=== PATIENT | female | born 1935 | race Caucasian/White ===

== ENCOUNTER 2021-02-09 11:16 | Inpatient (IN) | payer MEDICARE ==
[2021-02-09 11:40] LABS: Hemoglobin 12.9 g/dL (12.0-16.0); Mean Corpuscular HGB CONC 32.5 g/dL (32.0-36.0); Mean Corpuscular Hemoglobin 30.8 pg (27.0-31.0); Mean Corpuscular Volume 94.9 fL (78.0-98.0); Platelet Count 178 thou/uL (130-400); RBC Distribution Width 11.7 % (11.5-14.5); White Blood Cell (WBC) Count 19.7 thou/uL (4.8-10.8)
[2021-02-09 11:48] LABS: Actual Bicarbonate (HCO3a) 14.7 mEq/L (22-28); Analyzer IN Cardio ER; Base Excess (BEa) -9.8 mEq/L (-2.0 to +3.0); CO2 Tension 28.7 mmHg (35.0-45.0); Calcium, Ionized (arterial) 1.15 mmol/L (1.12-1.30); Carboxyhemoglobin (COHb) 0.5 gm% (0.0-3.0); Hemoglobin (Hb) 13.5 g/dL (12.0-16.0); O2 Tension (PaO2), arterial 132.8 mmHg (> 60.0); Potassium - ABG Lab 4.29 mmol/L (3.70-5.30); pH, Arterial 7.33 (7.35-7.45)
[2021-02-09 11:49] LABS: ALV-art Gradient 88.005 mmHg (0-20); Puncture Site RBA
[2021-02-09 12:00] LABS: Bilirubin Negative (Negative); Blood, Urine Moderate (Negative); Glucose, Urine (Dipstick) Negative (Negative); Ketone, Urine Negative (Negative); Leukocyte Large (Negative); Nitrite Negative (Negative); Protein, Urine (Dipstick) 100 mg/dL (Neg-Trace); Specific Gravity, Urine 1.025 (1.005-1.030); Urobilinogen 0.2 mg/dL (Less than 2)
[2021-02-09 12:05] LABS: Band 26 % (5-11); Eosinophils 3 % (0-10); Lymphocytes 15 % (21-51); MDiff Complete? YES; Metamyelocyte 1 % (0-0); Monocytes 6 % (0-10); Neutrophil 48 % (42-75); Platelet Morphology Comment Appears Adequate; Reactive Lymphocytes 1 % (0-10); Vacuoles SLIGHT
[2021-02-09 12:05] LABS: Clarity Cloudy (Clear)
[2021-02-09 12:06] LABS: Bacteria/HPF 4+ HPF (None Seen); Squamous Epithelial 0-3 HPF (0-3); WBC/HPF 21-50 HPF (0-3)
[2021-02-09 12:07] LABS: ALT (SGPT) 12 U/L (8-55); AST (SGOT) 18 U/L (5-34); Alkaline Phosphatase 61 U/L (40-110); Anion Gap 16 mmol/L (10-20); BUN (Urea Nitrogen) 30 mg/dL (9.8-20.1); Bilirubin, Total 0.4 mg/dL (0.2-1.2); Calc. Creatinine Clearance 0 mL/min (70-130); Calcium 8.1 mg/dL (7.8-10.44); Carbon Dioxide 16 mmol/L (23-31); Chloride 110 mmol/L (98-107); Globulin 2.4 g/dL (2.4-3.5); Potassium 4.6 mmol/L (3.5-5.1); Protein, Total 5.4 g/dL (5.8-8.1); Sodium 137 mmol/L (136-145)
[2021-02-09 12:39] LABS: Glucose 179 mg/dL (83-110)
[2021-02-09] MEDS ORDERED: Guaifenesin DM 100-10/5 ML UDCUP PO PRN (12:48)
[2021-02-09] MEDS ORDERED: Bisacodyl 5 MG TAB PO PRN (12:48)
[2021-02-09] MEDS ORDERED: HYDROcodone/Acetaminophen 5/325 mg Tablet PO PRN (12:48)
[2021-02-09 14:06] LABS: SARS-CoV-2 NAA Rapid Test Not Detected (NotDetected)
[2021-02-09 15:20] LABS: Lactic Acid 2.5 mmol/L (0.5-2.2)
[2021-02-09] MEDS: cefTRIAXone\\ROCEPHIN 2 GM in Sodium Chloride 0.9% 100 ML IVPB SCH (16:58)
[2021-02-09] MEDS ORDERED: Famotidine 20 MG TAB PO SCH (21:00)
[2021-02-09] MEDS: Ondansetron PF 4 MG/2 ML Vial IVP PRN (23:50)
[2021-02-10] MEDS ORDERED: Sodium Chloride 0.9% 1,000 ML IV SCH (01:30)
[2021-02-10 04:58] LABS: Anion Gap 16 mmol/L (10-20); BUN (Urea Nitrogen) 36 mg/dL (9.8-20.1); Calc. Creatinine Clearance 31 mL/min (70-130); Calcium 7.5 mg/dL (7.8-10.44); Carbon Dioxide 16 mmol/L (23-31); Chloride 111 mmol/L (98-107); Glucose 136 mg/dL (83-110); Potassium 4.6 mmol/L (3.5-5.1); Sodium 138 mmol/L (136-145)
[2021-02-10 05:05] LABS: Band 19 % (5-11); Hemoglobin 12.1 g/dL (12.0-16.0); Lymphocytes 5 % (21-51); MDiff Complete? YES; Mean Corpuscular HGB CONC 31.9 g/dL (32.0-36.0); Mean Corpuscular Hemoglobin 30.6 pg (27.0-31.0); Mean Corpuscular Volume 95.7 fL (78.0-98.0); Mean Platelet Volume 8.7 fL (7.4-10.4); Metamyelocyte 3 % (0-0); Monocytes 6 % (0-10); Neutrophil 67 % (42-75); Platelet Count 189 thou/uL (130-400); Platelet Morphology Comment Appears Adequate; RBC Morphology Normal; Red Blood Cell (RBC) Count 3.95 mill/uL (4.20-5.40); White Blood Cell (WBC) Count 24.2 thou/uL (4.8-10.8)
[2021-02-10] MEDS ORDERED: FLU VACC QS2021-22(65YR UP)/PF 240 MCG/0.7 ML SYRINGE IM ONE (09:00)
[2021-02-10] MEDS: Lactated Ringer's 1,000 ML IV SCH ×2 (09:19→16:49)
[2021-02-10] MEDS: Pantoprazole 40 MG VIAL IVP SCH (10:06)
[2021-02-10] MEDS: Ondansetron PF 4 MG/2 ML Vial IVP PRN (10:16)
[2021-02-10] MEDS: cefTRIAXone\\ROCEPHIN 2 GM in Sodium Chloride 0.9% 100 ML IVPB SCH (14:05)
[2021-02-10] MEDS ORDERED: Piperacillin/Tazobactam 3.375 GM in Sodium Chloride 0.9% 100 ML IVPB SCH (14:30)
[2021-02-10 19:10] LABS: Lactic Acid 1.5 mmol/L (0.5-2.2)
[2021-02-10] MEDS: Enoxaparin Sodium 30 MG/0.3 ML SYRINGE SC SCH (20:46)
[2021-02-10] MEDS ORDERED: Famotidine 20 MG TAB PO SCH (21:00)
[2021-02-10] MEDS ORDERED: Ziprasidone 20 MG VIAL IM PRN (21:22)
[2021-02-10] MEDS ORDERED: Sterile Water 10 ML ONE (21:30)
[2021-02-10] MEDS: Piperacillin/Tazobactam 3.375 GM in Sodium Chloride 0.9% 100 ML IVPB SCH (21:39)
[2021-02-11] MEDS: Lactated Ringer's 1,000 ML IV SCH ×2 (00:25→09:11)
[2021-02-11] MEDS: Piperacillin/Tazobactam 3.375 GM in Sodium Chloride 0.9% 100 ML IVPB SCH (04:14)
[2021-02-11 05:08] LABS: ALT (SGPT) 22 U/L (8-55); AST (SGOT) 42 U/L (5-34); Albumin 2.7 g/dL (3.4-4.8); Alkaline Phosphatase 55 U/L (40-110); Anion Gap 12 mmol/L (10-20); BUN (Urea Nitrogen) 38 mg/dL (9.8-20.1); Bilirubin, Total 0.3 mg/dL (0.2-1.2); Calc. Creatinine Clearance 33 mL/min (70-130); Carbon Dioxide 19 mmol/L (23-31); Chloride 113 mmol/L (98-107); Globulin 2.4 g/dL (2.4-3.5); Glucose 67 mg/dL (83-110); Hemoglobin 10.7 g/dL (12.0-16.0); Mean Corpuscular HGB CONC 32.9 g/dL (32.0-36.0); Mean Corpuscular Hemoglobin 31.1 pg (27.0-31.0); Mean Corpuscular Volume 94.4 fL (78.0-98.0); Mean Platelet Volume 8.8 fL (7.4-10.4); Platelet Count 142 thou/uL (130-400); Potassium 4.1 mmol/L (3.5-5.1); Protein, Total 5.1 g/dL (5.8-8.1); RBC Distribution Width 12.2 % (11.5-14.5); Red Blood Cell (RBC) Count 3.45 mill/uL (4.20-5.40); Sodium 140 mmol/L (136-145); White Blood Cell (WBC) Count 15.8 thou/uL (4.8-10.8)
[2021-02-11 05:40] LABS: Band 27 % (5-11); Lymphocytes 10 % (21-51); MDiff Complete? YES; Monocytes 1 % (0-10); Neutrophil 62 % (42-75)
[2021-02-11] MEDS: Pantoprazole 40 MG VIAL IVP SCH (09:11)
[2021-02-11] MEDS: Dextrose 5 %-0.45 % NaCl 1,000 ML IV SCH ×3 (11:25→21:05)
[2021-02-11] MEDS: Venlafaxine HCl XR 75 MG CAP PO SCH (11:26)
[2021-02-11] MEDS: Enoxaparin Sodium 30 MG/0.3 ML SYRINGE SC SCH (21:01)
[2021-02-12 05:52] LABS: Hemoglobin 10.3 g/dL (12.0-16.0); Mean Corpuscular HGB CONC 32.6 g/dL (32.0-36.0); Mean Corpuscular Hemoglobin 31.4 pg (27.0-31.0); Mean Corpuscular Volume 96.3 fL (78.0-98.0); Mean Platelet Volume 9.1 fL (7.4-10.4); Platelet Count 125 thou/uL (130-400); RBC Distribution Width 12.2 % (11.5-14.5); Red Blood Cell (RBC) Count 3.29 mill/uL (4.20-5.40); White Blood Cell (WBC) Count 16.8 thou/uL (4.8-10.8)
[2021-02-12] MEDS: Levothyroxine Sodium 75 MCG TAB PO SCH (05:58)
[2021-02-12 06:04] LABS: ALT (SGPT) 18 U/L (8-55); AST (SGOT) 30 U/L (5-34); Albumin 2.3 g/dL (3.4-4.8); Alkaline Phosphatase 64 U/L (40-110); Anion Gap 9 mmol/L (10-20); BUN (Urea Nitrogen) 28 mg/dL (9.8-20.1); Bilirubin, Total 0.3 mg/dL (0.2-1.2); Calc. Creatinine Clearance 42 mL/min (70-130); Carbon Dioxide 18 mmol/L (23-31); Chloride 112 mmol/L (98-107); Globulin 2.4 g/dL (2.4-3.5); Glucose 113 mg/dL (83-110); Potassium 3.4 mmol/L (3.5-5.1); Protein, Total 4.7 g/dL (5.8-8.1); Sodium 136 mmol/L (136-145)
[2021-02-12 06:42] LABS: Band 20 % (5-11); Lymphocytes 8 % (21-51); MDiff Complete? YES; Monocytes 5 % (0-10); Neutrophil 67 % (42-75)
[2021-02-12] MEDS: Aspirin 81 mg Enteric Coated Tablet PO SCH (08:25)
[2021-02-12] MEDS: Venlafaxine HCl XR 75 MG CAP PO SCH (08:25)
[2021-02-12] MEDS: Dextrose 5 %-0.45 % NaCl 1,000 ML IV SCH ×2 (08:25→15:40)
[2021-02-12] MEDS: Pantoprazole 40 MG VIAL IVP SCH (10:19)
[2021-02-12] MEDS ORDERED: Potassium Chloride 20 MEQ TAB PO SCH (12:45)
[2021-02-12] MEDS: Enoxaparin Sodium 30 MG/0.3 ML SYRINGE SC SCH (19:52)
[2021-02-12] MEDS: Ondansetron PF 4 MG/2 ML Vial IVP PRN (19:52)
[2021-02-13] MEDS: Dextrose 5 %-0.45 % NaCl 1,000 ML IV SCH ×3 (05:16→19:09)
[2021-02-13] MEDS: Levothyroxine Sodium 75 MCG TAB PO SCH (05:19)
[2021-02-13 05:58] LABS: ALT (SGPT) 16 U/L (8-55); AST (SGOT) 25 U/L (5-34); Albumin 2.3 g/dL (3.4-4.8); Alkaline Phosphatase 78 U/L (40-110); Anion Gap 10 mmol/L (10-20); BUN (Urea Nitrogen) 21 mg/dL (9.8-20.1); Bilirubin, Total 0.5 mg/dL (0.2-1.2); Calc. Creatinine Clearance 48 mL/min (70-130); Calcium 7.9 mg/dL (7.8-10.44); Carbon Dioxide 18 mmol/L (23-31); Chloride 111 mmol/L (98-107); Globulin 2.4 g/dL (2.4-3.5); Glucose 101 mg/dL (83-110); Potassium 3.7 mmol/L (3.5-5.1); Protein, Total 4.7 g/dL (5.8-8.1); Sodium 135 mmol/L (136-145)
[2021-02-13 08:11] LABS: Band 19 % (5-11); Eosinophils 1 % (0-10); Lymphocytes 6 % (21-51); MDiff Complete? YES; Mean Corpuscular HGB CONC 32.4 g/dL (32.0-36.0); Mean Corpuscular Hemoglobin 30.5 pg (27.0-31.0); Mean Corpuscular Volume 94.4 fL (78.0-98.0); Mean Platelet Volume 8.8 fL (7.4-10.4); Monocytes 8 % (0-10); Neutrophil 66 % (42-75); Platelet Count 109 thou/uL (130-400); Platelet Morphology Comment Appears Decreased; RBC Distribution Width 12.1 % (11.5-14.5); Red Blood Cell (RBC) Count 3.26 mill/uL (4.20-5.40); White Blood Cell (WBC) Count 14.9 thou/uL (4.8-10.8)
[2021-02-13] MEDS: Aspirin 81 mg Enteric Coated Tablet PO SCH (08:37)
[2021-02-13] MEDS: Venlafaxine HCl XR 75 MG CAP PO SCH (08:37)
[2021-02-13] MEDS: Enoxaparin Sodium 30 MG/0.3 ML SYRINGE SC SCH (19:10)
[2021-02-13] MEDS: Ciprofloxacin 500 MG TAB PO SCH (19:10)
[2021-02-13] MEDS: Ondansetron PF 4 MG/2 ML Vial IVP PRN (19:10)
[2021-02-14] MEDS: Dextrose 5 %-0.45 % NaCl 1,000 ML IV SCH ×2 (02:00→08:27)
[2021-02-14] MEDS: Levothyroxine Sodium 75 MCG TAB PO SCH (05:13)
[2021-02-14] MEDS: Ciprofloxacin 500 MG TAB PO SCH ×2 (05:13→20:43)
[2021-02-14 05:54] LABS: Mean Corpuscular HGB CONC 31.6 g/dL (32.0-36.0); Mean Corpuscular Hemoglobin 29.7 pg (27.0-31.0); Mean Platelet Volume 8.9 fL (7.4-10.4); Platelet Count 111 thou/uL (130-400); RBC Distribution Width 12.1 % (11.5-14.5); Red Blood Cell (RBC) Count 3.37 mill/uL (4.20-5.40)
[2021-02-14 06:23] LABS: Band 24 % (5-11); Eosinophils 2 % (0-10); Lymphocytes 11 % (21-51); MDiff Complete? YES; Monocytes 14 % (0-10); Neutrophil 49 % (42-75)
[2021-02-14] MEDS: Venlafaxine HCl XR 75 MG CAP PO SCH (08:27)
[2021-02-14] MEDS: Aspirin 81 mg Enteric Coated Tablet PO SCH (08:27)
[2021-02-14] MEDS ORDERED: Acetaminophen 325 MG TAB PO PRN (11:07)
[2021-02-14 11:38] VITALS: BMI 34.2
[2021-02-14] MEDS: Ondansetron PF 4 MG/2 ML Vial IVP PRN (15:23)
[2021-02-14] MEDS: Enoxaparin Sodium 30 MG/0.3 ML SYRINGE SC SCH (20:43)
[2021-02-14] MEDS: Trospium 20 MG TAB PO SCH (20:43)
[2021-02-14] MEDS ORDERED: Atorvastatin Calcium 10 MG TAB PO SCH (21:00)
[2021-02-15] MEDS ORDERED: Levothyroxine 175 MCG TAB PO SCH (06:00)
[2021-02-15] MEDS: Ciprofloxacin 500 MG TAB PO SCH (06:05)
[2021-02-15 07:10] LABS: Hemoglobin 11.6 g/dL (12.0-16.0); Mean Corpuscular HGB CONC 33.7 g/dL (32.0-36.0); Mean Corpuscular Hemoglobin 31.4 pg (27.0-31.0); Mean Corpuscular Volume 93.1 fL (78.0-98.0); Mean Platelet Volume 8.6 fL (7.4-10.4); Platelet Count 125 thou/uL (130-400); RBC Distribution Width 12.2 % (11.5-14.5); Red Blood Cell (RBC) Count 3.71 mill/uL (4.20-5.40); White Blood Cell (WBC) Count 9.8 thou/uL (4.8-10.8)
[2021-02-15 07:21] LABS: Anion Gap 11 mmol/L (10-20); BUN (Urea Nitrogen) 12 mg/dL (9.8-20.1); Calc. Creatinine Clearance 59 mL/min (70-130); Calcium 8.2 mg/dL (7.8-10.44); Carbon Dioxide 18 mmol/L (23-31); Chloride 114 mmol/L (98-107); Glucose 63 mg/dL (83-110); Potassium 3.8 mmol/L (3.5-5.1); Sodium 139 mmol/L (136-145)
[2021-02-15] MEDS: Trospium 20 MG TAB PO SCH (08:58)
[2021-02-15] MEDS: Venlafaxine HCl XR 75 MG CAP PO SCH (08:58)
[2021-02-15] MEDS: Aspirin 81 mg Enteric Coated Tablet PO SCH (08:58)
[2021-02-15 09:11] LABS: Band 28 % (5-11); Burr Cells SLIGHT = 2-5 cells (100X) (0-1/hpf); Eosinophils 3 % (0-10); Lymphocytes 11 % (21-51); MDiff Complete? YES; Monocytes 12 % (0-10); Neutrophil 44 % (42-75); Platelet Morphology Comment Appears Decreased; Polychromasia SLIGHT = 2-3 cells (100X) (0-2/hpf); Reactive Lymphocytes 1 % (0-10)
[2021-02-15] MEDS: Ondansetron PF 4 MG/2 ML Vial IVP PRN (09:24)
[2021-02-15] MEDS ORDERED: Mag-Al Plus 1200 MG/1200 MG/120 MG/30 ML UDCUP PO PRN (09:56)
[2021-02-15] MEDS ORDERED: Diphenoxylate HCl/Atropine Tablet PO PRN ×2 (11:55→13:32)
[2021-02-15] MEDS ORDERED: Venlafaxine HCl XR 75 MG CAP PO SCH (12:30)
[2021-02-15 16:32] VITALS: BP 172/88; TEMP 98.5
[2021-02-16] MEDS ORDERED: Venlafaxine HCl 25 MG TAB PO SCH (09:00)
== END 2021-02-15 16:32 | DRG 871 ==
LOC: ERS 11:16 → EDBD 11:16 → CCU 12:52 → T4-A 02-11 12:29
PROVIDERS: ADMIT Hospitalist; ATTEND Internal Medicine
PROC: 3E033XZ Introduction of Vasopressor into Peripheral Vein, Percutaneous Approach (ICD-10-PCS; principal; 2021-02-09)
PROC: 02HV33Z Insertion of Infusion Device into Superior Vena Cava, Percutaneous Approach (ICD-10-PCS; 2021-02-09)
PROC: 4B02XSZ Measurement of Cardiac Pacemaker, External Approach (ICD-10-PCS; 2021-02-10)
DX: A41.59 Other Gram-negative sepsis (principal); G93.41 Metabolic encephalopathy; R65.21 Severe sepsis with septic shock; N17.9 Acute kidney failure, unspecified; N39.0 Urinary tract infection, site not specified; E87.2 Acidosis; K55.9 Vascular disorder of intestine, unspecified; Z66 Do not resuscitate; Z20.822 Contact with and (suspected) exposure to COVID-19; I25.10 Atherosclerotic heart disease of native coronary artery without angina pectoris; I48.91 Unspecified atrial fibrillation; K21.9 Gastro-esophageal reflux disease without esophagitis; F32.A Depression, unspecified; E66.9 Obesity, unspecified; E03.9 Hypothyroidism, unspecified; E11.22 Type 2 diabetes mellitus with diabetic chronic kidney disease; D63.1 Anemia in chronic kidney disease; D69.6 Thrombocytopenia, unspecified; N18.30 Chronic kidney disease, stage 3 unspecified; I12.9 Hypertensive chronic kidney disease with stage 1 through stage 4 chronic kidney disease, or unspecified chronic kidney disease; E78.5 Hyperlipidemia, unspecified; N32.81 Overactive bladder; E77.8 Other disorders of glycoprotein metabolism; E88.09 Other disorders of plasma-protein metabolism, not elsewhere classified; Z45.018 Encounter for adjustment and management of other part of cardiac pacemaker; Z95.2 Presence of prosthetic heart valve; Z87.891 Personal history of nicotine dependence; Z68.34 Body mass index [BMI] 34.0-34.9, adult
CPT/HCPCS: 36415; 36416; 36556; 36600; 51702; 71045; 74176; 80048; 80053; 81003; 81015; 82805; 83605; 83630; 83690; 84484; 85025; 87040; 87045; 87046; 87077; 87086; 87186; 87324; 87328; 87329; 87427; 87449; 93005; 93306; 96365; 96375; C9113; J0744; J1650; J2405; J2543; J3486; J3490; J7042; J7050; J7120; U0002